=== PATIENT | female | born 1970 | race Caucasian/White ===

== ENCOUNTER → 2017-04-11 18:04 | Outpatient (REF) | payer BC, SELFPAY ==
[2017-04-11 19:07] LABS: Basophils # 0.1 K/mm3 (0-0.2); Basophils % 0.6 % (0.1-2.0); Eosinophils # 0.3 K/mm3 (0.0-0.4); Eosinophils % 3.9 % (0.1-12.0); Hematocrit 39.3 % (37.0-47.0); Hemoglobin 13.1 g/dL (12.2-16.2); Lymphocytes # 2.7 K/mm3 (0.7-4.5); Mean Corpuscular HGB Conc 33.2 g/dL (31.8-35.4); Mean Corpuscular Hemoglobin 30.3 pg (27.0-31.2); Mean Corpuscular Volume 91.1 fl (81-99); Mean Platelet Volume 9.1 fl (7.4-10.4); Monocytes # 0.6 K/mm3 (0.1-1.0); Monocytes % 7.8 % (1.7-9.3); Neutrophils # 3.7 K/mm3 (1.8-7.8); Neutrophils % 50.6 % (37.0-80.0); Platelet Count 263 K/mm3 (142-424); Red Blood Count 4.31 M/mm3 (4.20-5.40); Red Cell Distribution Width 12.4 % (11.5-17.5); White Blood Count 7.3 K/mm3 (4.8-10.8)
[2017-04-11 19:20] LABS: Hemoglobin A1C 5.5 % (0.0-7.0)
[2017-04-11 19:21] LABS: Alanine Aminotransferase 27 U/L (12-78); Albumin Level 3.6 gm/dL (3.4-5.0); Albumin/Globulin Ratio 0.9 (1.1-1.8); Alkaline Phosphatase 74 U/L (46-116); Anion Gap 12.3 mEq/L (5-15); Aspartate Amino Transferase 13 U/L (15-37); Bilirubin,Total 0.1 mg/dL (0.2-1.0); Blood Urea Nitrogen 12 mg/dL (7-18); Calcium 8.8 mg/dL (8.5-10.1); Carbon Dioxide 26 mmol/L (21.0-32.0); Chloride 105 mmol/L (98-107); Chol/HDL Ratio 4.7 (1-3.5); Cholesterol 201 mg/dL (140-200); Creatinine,Serum 0.65 mg/dL (0.55-1.02); Estimated Glomerular Filt Rate 98 ml/min (>60); Free T4 (Free Thyroxine) 0.78 ng/dl (0.76-1.46); GFR (African American) 119 ML/MIN (>60); Globulin 3.8 gm/dl (1.3-3.2); Glucose 84 mg/dL (74-106); HDL Cholesterol 43 mg/dL (29-89); LDL Cholesterol 109 mg/dL (0-130); Potassium 4.3 mmoL/L (3.5-5.1); Sodium 139 mmol/L (136-145); Thyroid Stimulating Hormone 4.01 uIU/ml (0.358-3.740); Total Protein,Serum 7.4 gm/dL (6.4-8.2); Triglycerides 245 mg/dL (30-200); VLDL Cholesterol 49 mg/dL (0-40)
== END ==
LOC: LAB 18:04
PROVIDERS: Visit Provider Nurse Practitioner Family
DX: R53.83 Other fatigue (principal)
CPT/HCPCS: 80053; 80061; 82652; 83036; 84439; 84443; 85025

== ENCOUNTER → 2020-06-30 14:27 | Outpatient (CLI) | payer BC, SELFPAY ==
[2020-06-30 14:42] LABS: Alanine Aminotransferase 18 U/L (12-78); Albumin/Globulin Ratio 1.3 (1.1-1.8); Alkaline Phosphatase 76 U/L (38-126); Anion Gap 8.8 mEq/L (5-15); Aspartate Amino Transferase 27 U/L (14-36); Bilirubin,Total 0.4 mg/dl (0.2-1.3); Blood Urea Nitrogen 12 mg/dl (7-17); Calcium 9.3 mg/dl (8.4-10.2); Carbon Dioxide 28 mmol/L (22.0-30.0); Chloride 106 mmol/L (98-107); Chol/HDL Ratio 5.5 (1-3.5); Cholesterol 220 mg/dl (140-200); Estimated Glomerular Filt Rate 89 ml/min (>60); GFR (African American) 107 ML/MIN (>60); Globulin 3.2 g/dL (1.3-3.2); Glucose 84 mg/dl (74-100); HDL Cholesterol 40 mg/dl (40-60); Potassium 4.8 mmoL/L (3.5-5.1); Sodium 138 mmol/L (136-145); Total Protein,Serum 7.2 g/dl (6.3-8.2)
[2020-06-30 14:46] LABS: Basophils # 0.1 K/mm3 (0-0.2); Basophils % 1.3 % (0.1-2.0); Eosinophils # 0.3 K/mm3 (0.0-0.4); Eosinophils % 3.9 % (0.1-12.0); Hematocrit 41.9 % (37.0-47.0); Hemoglobin 13.8 g/dL (12.2-16.2); Lymphocytes # 2.6 K/mm3 (0.7-4.5); Lymphocytes % 31.8 % (10-50); Mean Corpuscular Hemoglobin 30.6 pg (27.0-31.2); Mean Corpuscular Volume 92.8 fl (81-99); Monocytes # 0.7 K/mm3 (0.1-1.0); Monocytes % 8.6 % (1.7-9.3); Neutrophils # 4.4 K/mm3 (1.8-7.8); Neutrophils % 54.3 % (37.0-80.0); Platelet Count 292 K/mm3 (142-424); Red Blood Count 4.52 M/mm3 (4.20-5.40); Red Cell Distribution Width 12.7 % (11.5-17.5); White Blood Count 8.1 K/mm3 (4.8-10.8)
[2020-06-30 14:53] LABS: Direct LDL Cholesterol 115.63 mg/dL (100-129)
[2020-06-30 15:00] LABS: Free T4 (Free Thyroxine) 0.75 ng/dl (0.78-2.19)
[2020-06-30 15:06] LABS: Triglycerides 507 mg/dl (30-150)
[2020-06-30 15:07] LABS: 25-OH Vitamin D, Total < 12.8 ng/mL (30-100)
[2020-06-30 15:15] LABS: Thyroid Stimulating Hormone 5.31 uIU/mL (0.465-4.68)
== END ==
PROVIDERS: Visit Provider Emergency Medicine
DX: Z00.00 Encounter for general adult medical examination without abnormal findings (principal); E55.9 Vitamin D deficiency, unspecified; R53.83 Other fatigue
CPT/HCPCS: 80053; 80061; 82306; 84439; 84443; 85025

== ENCOUNTER → 2020-07-08 15:39 | Outpatient (CLI) | payer BC, SELFPAY ==
--- NOTE | 2020-07-08 15:39 | MM_ITS ---
PROCEDURE INFORMATION: Exam: MG Screening 3D Mammography Exam date and time: 07/08/2020 3:39 PM Age: 50 years old Clinical indication: Encounter for screening mammogram for malignant neoplasm of breast TECHNIQUE: Imaging protocol: Screening tomosynthesis and 2D mammography including computer-aided detection (CAD) when performed. COMPARISON: 1. MG DMDXUL DIG MAMM-DX UNI-LT 10/04/2014 1:46 PM 2. MG DMDXUAVL DIG MAMM-DX UNI ADD VIEWS-LT 03/27/2014 1:03 PM 3. MG DMSB DIG MAMM-SCREEN HAYDEE 03/14/2014 4:25 PM FINDINGS: MAMMOGRAPHY: Breast composition: The breasts are heterogeneously dense, which may obscure small masses. Mass: No new suspicious masses. Architectural distortion: No suspicious distortion. Calcifications: No suspicious calcifications. Asymmetric density: None. Skin thickening: None. Axillary adenopathy: None. IMPRESSION: No mammographic evidence of malignancy. Annual screening is recommended unless otherwise clinically indicated. ASSESSMENT: BI-RADS Category 1: Negative
== END ==
PROVIDERS: PCP Emergency Medicine; Visit Provider Emergency Medicine
DX: Z12.31 Encounter for screening mammogram for malignant neoplasm of breast (principal)
CPT/HCPCS: 77063; 77067

== ENCOUNTER → 2022-08-02 13:36 | Outpatient (CLI) | payer BC, SELFPAY ==
[2022-08-02 12:08] LABS: Basophils # 0.1 K/mm3 (0-0.2); Basophils % 0.8 % (0.1-2.0); Eosinophils # 0.4 K/mm3 (0.0-0.4); Eosinophils % 4.8 % (0.1-12.0); Hematocrit 41.9 % (37.0-47.0); Hemoglobin 13.5 g/dL (12.2-16.2); Lymphocytes # 2.7 K/mm3 (0.7-4.5); Mean Corpuscular HGB Conc 32.1 g/dL (31.8-35.4); Mean Corpuscular Hemoglobin 29.9 pg (27.0-31.2); Mean Corpuscular Volume 93.2 fl (81-99); Mean Platelet Volume 9.3 fl (7.4-10.4); Monocytes # 0.8 K/mm3 (0.1-1.0); Monocytes % 8.8 % (1.7-9.3); Neutrophils # 4.8 K/mm3 (1.8-7.8); Neutrophils % 54.6 % (37.0-80.0); Platelet Count 255 K/mm3 (142-424); White Blood Count 8.7 K/mm3 (4.8-10.8)
[2022-08-02 12:44] LABS: Alanine Aminotransferase 17 U/L (12-78); Albumin Level 4.1 g/dl (3.5-5.0); Albumin/Globulin Ratio 1.3 (1.1-1.8); Alkaline Phosphatase 80 U/L (38-126); Anion Gap 15.2 mEq/L (5-15); Aspartate Amino Transferase 22 U/L (14-36); Bilirubin,Total 0.2 mg/dl (0.2-1.3); Blood Urea Nitrogen 10 mg/dl (7-17); Carbon Dioxide 27 mmol/L (22.0-30.0); Chloride 103 mmol/L (98-107); Chol/HDL Ratio 4.1 (1-3.5); Cholesterol 240 mg/dl (140-200); Estimated Glomerular Filt Rate 105 ml/min (>60); GFR (African American) 127 ML/MIN (>60); Globulin 3.2 g/dL (1.3-3.2); Glucose 81 mg/dl (74-100); HDL Cholesterol 58 mg/dl (40-60); Potassium 4.2 mmoL/L (3.5-5.1); Sodium 141 mmol/L (136-145); Total Protein,Serum 7.3 g/dl (6.3-8.2); Triglycerides 367 mg/dl (30-150); VLDL Cholesterol 73 mg/dL (0-40)
[2022-08-02 12:55] LABS: Direct LDL Cholesterol 120.35 mg/dL (100-129)
[2022-08-02 13:01] LABS: 25-OH Vitamin D, Total 22.1 ng/mL (30-100)
[2022-08-02 13:02] LABS: Free T4 (Free Thyroxine) 0.78 ng/dl (0.78-2.19)
[2022-08-02 13:15] LABS: Thyroid Stimulating Hormone 4.66 uIU/mL (0.465-4.68)
== END ==
PROVIDERS: PCP Emergency Medicine; Visit Provider Emergency Medicine
DX: Z00.00 Encounter for general adult medical examination without abnormal findings (principal); R07.9 Chest pain, unspecified; E55.9 Vitamin D deficiency, unspecified; N95.1 Menopausal and female climacteric states; E03.9 Hypothyroidism, unspecified; E66.9 Obesity, unspecified; Z68.33 Body mass index [BMI] 33.0-33.9, adult; Z72.0 Tobacco use
CPT/HCPCS: 80053; 80061; 82306; 84439; 84443; 85025

== ENCOUNTER → 2022-08-12 07:35 | Outpatient (CLI) | payer BC, SELFPAY ==
--- NOTE | 2022-08-12 | CA_ITS ---
APPROVED REPORT Exam: Exercise Treadmill Technologist: Larisa Au, Ht: 5 ft 6 in Wt: 208 lbs BSA: 2.03 m2 HR: 74 bpm BP: 145/84 mmHg Rhythm: NSR Medical History Medications: Vitamin D3,,,,, Atorvastatin,,,,, Stress Test Details Test: Forrest HR Resting HR: 83 bpm Max Heart Rate (APMHR): 168 bpm Max HR Achieved: 165 bpm Target HR (85% APMHR): 143 bpm % of APMHR: 98 Recovery HR: 96 bpm HR response to stress: Normal HR response to stress BP Resting BP: 139.0/82 mmHg Max BP: 146/74 mmHg Recovery BP: 121.0/79.0 mmHg BP response to stress: Normal blood pressure response to stress. ECG Resting ECG: NSR. No ST changes, occasional PACS Stress ECG: <[address] depression in lateral leads Arrhythmia: PACs, PVCs Recovery ECG: Return to baseline within 3 minutes of recovery Recovery Arrhythmia: PACs, PVCs Clinical Reason for Termination: SOA Exercise duration: 05:00 min Highest Stage Achieved: I Exercise capacity: 4.6 METs Overall Exercise Capacity for Age: Poor Stress ECG Conclusion The patient was able to walk for 5:00 in stage I Forrest Protcol (stage I held to completion). She exhibited a poor exercise functional capacity compared to age and sex matched peers. She had a normal HR and BP response to exercise. Max HR: 165 % of PM: 98% Max BP: 146/74 METs: 4.6 Test stopped due to: SOA Symptoms: No CP. Arrhythmias/Ectopy: Occ PAC & PVC were present during peak stress and at recovery ST-T Changes: <[address] depression in lateral leads Conclusion: Possible ischemia present on GXT. Poor exercise capacity. Myoview images reported separately. Test Summary REST . . . . . . . Sitting REST . . . . . . . Standing REST 03:53 0.0 0.0 83 . 139/ 82 . . Stage 1 01:00 10.0 1.7 129 . . . . Stage 1 02:00 10.0 1.7 152 . . . . Stage 1 . . . . . . . Stage held Stage 1 03:00 10.0 1.7 157 . . . . Stage 1 04:00 10.0 1.7 161 . . . . Stage 1 . . . . . . . Stage resumed Stage 1 05:00 10.0 1.7 165 . . . Stop exercise at 05:00 RECOVERY 01:00 0.0 0.0 135 . . . . RECOVERY 02:00 0.0 0.0 102 . . . . RECOVERY 03:00 0.0 0.0 91 . 146/ 74 . . RECOVERY 04:00 0.0 0.0 94 . 129/ 77 . . RECOVERY 05:00 0.0 0.0 95 . 121/ 79 . . RECOVERY 05:22 0.0 0.0 97 . 121/ 79 . . Electronically signed by : Karina Farrell, 08/15/2022 23:24:22
--- NOTE | 2022-08-12 07:35 | MM_ITS ---
PROCEDURE INFORMATION: Exam: MG Bilateral Screening 3D Mammography Exam date and time: 08/12/2022 9:53 AM Age: 52 years old Clinical indication: Screening. No family history of breast cancer. TECHNIQUE: Imaging protocol: Bilateral Screening tomosynthesis and 2D mammography including computer-aided detection (CAD) when performed. COMPARISON: 1. MG MM DIG SCREENING MAMM BI W/CAD 07/08/2020 3:50 PM 2. MG DMDXUL DIG MAMM-DX UNI-LT 10/04/2014 1:46 PM 3. MG DMDXUAVL DIG MAMM-DX UNI ADD VIEWS-LT 03/27/2014 1:03 PM 4. MG DMSB DIG MAMM-SCREEN HAYDEE 03/14/2014 4:25 PM FINDINGS: MAMMOGRAPHY: Breast composition: The breasts are heterogeneously dense, which may obscure small masses. Mass: No suspicious mass. Architectural distortion: None. Calcifications: No suspicious calcifications. Asymmetric density: None. Skin thickening: None. Axillary adenopathy: None. IMPRESSION: No mammographic evidence of malignancy. Annual screening is recommended unless otherwise clinically indicated. ASSESSMENT: BI-RADS Category 1: Negative
--- NOTE | 2022-08-12 07:35 | NM_ITS ---
APPROVED REPORT Exam: Nuclear Stress Test Indication: HYPERLIPIDEMIA, TOB USE, C.P. Patient Location: Outpatient Stress Tech: Larisa LOREDO Tech:ADAM Engel RT(R)(N) Ht: 5 ft 6 in Wt: 208 lbs Bra Size: 40D HR: 83 bpm BP: 139/82 mmHg BSA: 2.03 m2 Rhythm: NSR TID: 1.13 BMI: 33.5 History: HYPERLIPIDEMIA, TOB USE, C.P. Procedure: Patient exercised on Forrest protocol 5:00 minutes and sec, resting heart rate 83 bpm, resting blood pressure 139/82 mmHg, with exercise maximum heart rate achived was 165 bpm which is 98 % of the maximum predicted heart rate and blood pressure was 146/74 mmHg. Test was stopped due to FATIGUE. Patient has poor exercise capacity, achieved 4.6 METs of workload on treadmill, the blood pressure response to exercise was normal. Cardiac Stress and Resting SPECT Images: Cardiac Stress and Resting SPECT images were obtained using technetium 99m Myoview 32.2 mCi stress and 10.50 mCi at rest. This was a technically difficult study due proximity of the GI tract to the cardiac borders and significant surrounding GI count uptake. Resting and stress perfusion imaging in both supine and prone positions demonstrate small sized, mild, fixed perfusion defect in the mid anterior LV wall. Gated imaging demonstrates a normal global and regional LV systolic function. LVEF is calculated at 60%. Conclusion: This was a technically difficult study due proximity of the GI tract to the cardiac borders and significant surrounding GI count uptake. Small sized, mild, fixed perfusion defect in the mid anterior LV wall. Findings may be artifact due to reduced counts anteriorly in the setting of high counts in the inferior border due to proximity of the GI tract, but true perfusion defect cannot be ruled out. No evidence of reversible ischemia. Gated imaging demonstrates a normal global and regional LV systolic function. LVEF is calculated at 60%. Electronically signed by : Karina Farrell, 08/15/2022 23:31:39
== END ==
PROVIDERS: PCP Emergency Medicine; Visit Provider Emergency Medicine
DX: R07.9 Chest pain, unspecified (principal); Z12.31 Encounter for screening mammogram for malignant neoplasm of breast
CPT/HCPCS: 77063; 77067; 78452; 93017; A9502

== ENCOUNTER → 2022-09-07 12:30 | Outpatient (CLI) | payer BC, SELFPAY | PROVIDERS: PCP Emergency Medicine; Visit Provider Internal Medicine | DX: R07.9 Chest pain, unspecified (principal); R94.39 Abnormal result of other cardiovascular function study; E66.9 Obesity, unspecified; Z68.33 Body mass index [BMI] 33.0-33.9, adult; Z72.0 Tobacco use | CPT/HCPCS: 93306 ==

== ENCOUNTER 2023-09-08 12:10 | Outpatient (CLI) | payer OTHER, SELFPAY ==
[2023-09-08 18:48] LABS: Alanine Aminotransferase 25 U/L (12-78); Albumin Level 3.7 g/dl (3.5-5.0); Albumin/Globulin Ratio 1.2 (1.1-1.8); Alkaline Phosphatase 88 U/L (38-126); Anion Gap 11.1 mEq/L (5-15); Aspartate Amino Transferase 30 U/L (14-36); Bilirubin,Total 0.4 mg/dl (0.2-1.3); Blood Urea Nitrogen 11 mg/dl (7-17); Calcium 9.2 mg/dl (8.4-10.2); Carbon Dioxide 24 mmol/L (22.0-30.0); Chloride 107 mmol/L (98-107); Chol/HDL Ratio 5.5 (1-3.5); Cholesterol 241 mg/dl (140-200); Estimated Glomerular Filt Rate 105 ml/min (>60); GFR (African American) 127 ML/MIN (>60); Glucose 84 mg/dl (74-100); HDL Cholesterol 44 mg/dl (40-60); Potassium 4.1 mmoL/L (3.5-5.1); Sodium 138 mmol/L (136-145); Total Protein,Serum 6.7 g/dl (6.3-8.2); Triglycerides 335 mg/dl (30-150); VLDL Cholesterol 67 mg/dL (0-40)
[2023-09-08 18:54] LABS: Basophils # 0.1 K/mm3 (0-0.2); Basophils % 1.2 % (0.1-2.0); Eosinophils # 0.3 K/mm3 (0.0-0.4); Eosinophils % 4.3 % (0.1-12.0); Hematocrit 41.9 % (37.0-47.0); Lymphocytes # 1.2 K/mm3 (0.7-4.5); Lymphocytes % 16.4 % (10-50); Mean Corpuscular HGB Conc 33.4 g/dL (31.8-35.4); Mean Corpuscular Hemoglobin 31.8 pg (27.0-31.2); Mean Corpuscular Volume 95.1 fl (81-99); Mean Platelet Volume 9.5 fl (7.4-10.4); Monocytes # 0.6 K/mm3 (0.1-1.0); Monocytes % 7.6 % (1.7-9.3); Neutrophils # 5.3 K/mm3 (1.8-7.8); Neutrophils % 70.3 % (37.0-80.0); Platelet Count 242 K/mm3 (142-424); Red Blood Count 4.41 M/mm3 (4.20-5.40); Red Cell Distribution Width 13.6 % (11.5-17.5); White Blood Count 7.5 K/mm3 (4.8-10.8)
[2023-09-08 19:00] LABS: Direct LDL Cholesterol 127.86 mg/dL (100-129)
[2023-09-08 19:05] LABS: 25-OH Vitamin D, Total 23.1 ng/mL (30-100); Free Thyroxine Index 1.8 ug/dL (5.93-13.13); T4 (Thyroxine) 5.8 ug/dl (5.53-11.0); Triiodothryronine (T3) Uptake 31 % (23.5-40.5)
[2023-09-08 19:19] LABS: Thyroid Stimulating Hormone 2.62 uIU/mL (0.465-4.68)
== END 2023-09-08 23:59 | disposition home or self-care (01) ==
LOC: LAB.DROPOF 09-09 12:10
PROVIDERS: PCP Family Medicine; Visit Provider Family Medicine
DX: E66.9 Obesity, unspecified (principal); Z68.36 Body mass index [BMI] 36.0-36.9, adult; E78.2 Mixed hyperlipidemia; E03.9 Hypothyroidism, unspecified
CPT/HCPCS: 80050; 80053; 80061; 82306; 84436; 84443; 84479; 85025

== ENCOUNTER 2023-09-19 13:20 | Outpatient (CLI) | payer OTHER, SELFPAY ==
--- NOTE | 2023-09-19 13:21 | MM_ITS ---
PROCEDURE INFORMATION: Exam: MG Bilateral Screening 3D Mammography Exam date and time: 09/19/2023 1:10 PM Age: 53 years old Clinical indication: Screening mammogram TECHNIQUE: Imaging protocol: Bilateral Screening tomosynthesis and 2D mammography including computer-aided detection (CAD) when performed. COMPARISON: 1. MG MM DIG SCREENING MAMM BI W/CAD 08/12/2022 9:53 AM 2. MG MM DIG SCREENING MAMM BI W/CAD 07/08/2020 3:50 PM 3. MG DMDXUL DIG MAMM-DX UNI-LT 10/04/2014 1:46 PM 4. MG DMDXUAVL DIG MAMM-DX UNI ADD VIEWS-LT 03/27/2014 1:03 PM FINDINGS: MAMMOGRAPHY: Breast composition: The breast is heterogeneously dense, which may obscure small masses. Mass: None. Architectural distortion: No new or suspicious architectural distortion. Calcifications: No new or suspicious calcifications are present Asymmetric density: No new or suspicious asymmetric density is present Skin thickening: None. Axillary adenopathy: None. IMPRESSION: No mammographic evidence of malignancy. Recommend annual screening mammography unless otherwise clinically indicated. ASSESSMENT: BI-RADS category 1: Negative.
--- NOTE | 2023-09-19 13:34 | US_ITS ---
FINAL REPORT CLINICAL HISTORY: claudication, smoker, HLD COMPARISON: None FINDINGS: ANKLE-BRACHIAL PRESSURE INDICES Pressure indices are as follows: RIGHT LOWER EXTREMITY: Ankle-brachial pressure index: 1.2 Comments: Normal LEFT LOWER EXTREMITY: Ankle-brachial pressure index: 1.1 Comments: Normal IMPRESSION: No evidence of significant obstructive peripheral vascular disease of the lower extremities Reviewed, Interpreted and Dictated by Jodi Mcneal MD Transcribed by Summer White Authenticated and [facility]
== END 2023-09-19 23:59 | disposition home or self-care (01) ==
LOC: RAD 13:21
PROVIDERS: PCP Family Medicine; Visit Provider Family Medicine
DX: Z12.31 Encounter for screening mammogram for malignant neoplasm of breast (principal); I73.9 Peripheral vascular disease, unspecified; R09.89 Other specified symptoms and signs involving the circulatory and respiratory systems; E66.9 Obesity, unspecified; Z68.36 Body mass index [BMI] 36.0-36.9, adult
CPT/HCPCS: 77063; 77067; 93923